=== PATIENT | male | born 1950 | race Asian ===

== ENCOUNTER 2017-07-21 19:41 | Inpatient (IN) | payer OTHER, MEDICARE ==
[~2017-07-21 19:41] MED LIST: DOPamine-D5W 1.6 MG/ML 250 ML
[2017-07-21] MEDS: ONDANSETRON 4 MG INJ IV (19:49)
[2017-07-21] MEDS: morphine 4 MG/ML VIAL IV (19:50)
[2017-07-21] MEDS: HEPARIN 1000 UNITS/ML 10 ML INJ IV (19:52)
[2017-07-21 19:53] LABS: ADD MAN DIFF? NO
[2017-07-21 19:55] LABS: BASOPHIL # 0.1 10^3/ul (0.0-0.1); BASOPHILS % 0.4 % (0.0-2.0); EOSINOPHILS # 0.3 10^3/ul (0.0-0.5); EOSINOPHILS % 2.2 % (0.0-7.0); HEMATOCRIT 44.2 % (42.0-52.0); HEMOGLOBIN 15.1 g/dl (14.0-18.0); LYMPHOCYTES # 2.8 10^3/ul (0.8-2.9); MEAN CORPUSCULAR HEMOGLOBIN 31.9 pg (29.0-33.0); MEAN CORPUSCULAR HGB CONC 34.2 g/dl (32.0-37.0); MEAN CORPUSCULAR VOLUME 93.2 fl (82.0-101.0); MEAN PLATELET VOLUME 10.7 fl (7.4-10.4); MONOCYTE # 0.9 10^3/ul (0.3-0.9); MONOCYTES % 6.8 % (0.0-11.0); NEUTROPHIL # 9.7 10^3/ul (1.6-7.5); PLATELET COUNT 202 10^3/UL (140-415); RED BLOOD COUNT 4.74 10^6/ul (4.70-6.10); RED CELL DISTRIBUTION WIDTH 13.2 % (11.5-14.5)
[2017-07-21 19:55] LABS: WHITE BLOOD COUNT 13.9 10^3/ul (4.8-10.8)
[2017-07-21] MEDS ORDERED: IODIXANOL LOCM 100 ML BTL ×2 (20:03→20:14)
[2017-07-21] MEDS ORDERED: LIDOCAINE 1% (MDV) 20 ML INJ ×2 (20:03→20:14)
[2017-07-21 20:14] LABS: ANION GAP 16 (8-16); BLOOD UREA NITROGEN 15 mg/dl (7-20); CALCIUM 8.7 mg/dl (8.4-10.2); CARBON DIOXIDE 22 mmol/L (21-31); CHLORIDE 104 mmol/L (97-110); CREATININE 0.87 mg/dl (0.61-1.24); GLUCOSE 149 mg/dl (70-220); POTASSIUM 3.9 mmol/L (3.5-5.1); SODIUM 138 mmol/L (135-144)
[2017-07-21] MEDS ORDERED: VERAPAMIL 5 MG INJ (20:14)
[2017-07-21] MEDS ORDERED: NITROGLYCERIN (IC) 100 MCG/ML INJ (20:14)
[2017-07-21 20:19] LABS: MAGNESIUM 1.9 mg/dl (1.7-2.5)
[2017-07-21] MEDS ORDERED: SOD CHLORIDE 0.9% 500 ML (20:19)
[2017-07-21 20:25] LABS: TROPONIN-I 0.032 ng/ml (0.00-0.12)
[2017-07-21] MEDS ORDERED: FENTAnyl 50 MCG/ML VIAL (20:41)
[2017-07-21] MEDS ORDERED: TICAGRELOR 90 MG TABLET (20:41)
[2017-07-21] MEDS ORDERED: MIDAZOLAM 1 MG/ML 2 ML INJ (20:42)
[2017-07-21] MEDS ORDERED: ATROPINE 1 MG/10 ML SYRINGE (21:29)
[2017-07-21] MEDS ORDERED: ACETAMINOPHEN 325 MG TAB PO (22:00)
[2017-07-21] MEDS ORDERED: morphine 2 MG INJ IV (22:00)
[2017-07-21] MEDS: SOD CHLORIDE 0.9% 1,000 ML IV (23:51)
[2017-07-22] MEDS: OXYCODONE/ACETAMINOPHEN (5/325) TAB PO (01:13)
[2017-07-22 02:44] LABS: CREATINE KINASE 2516 IU/L (23-200)
[2017-07-22 05:44] LABS: ADD MAN DIFF? NO
[2017-07-22 06:02] LABS: BASOPHILS % 0.2 % (0.0-2.0); HEMATOCRIT 36.3 % (42.0-52.0); HEMOGLOBIN 12.5 g/dl (14.0-18.0); LYMPHOCYTES # 1.2 10^3/ul (0.8-2.9); LYMPHOCYTES % 12.5 % (15.0-51.0); MEAN CORPUSCULAR HEMOGLOBIN 32.3 pg (29.0-33.0); MEAN CORPUSCULAR HGB CONC 34.4 g/dl (32.0-37.0); MEAN CORPUSCULAR VOLUME 93.8 fl (82.0-101.0); MEAN PLATELET VOLUME 11.4 fl (7.4-10.4); MONOCYTE # 0.4 10^3/ul (0.3-0.9); MONOCYTES % 3.7 % (0.0-11.0); NEUTROPHIL # 8.2 10^3/ul (1.6-7.5); NEUTROPHILS % 83.3 % (39.0-77.0); PLATELET COUNT 159 10^3/UL (140-415); RED BLOOD COUNT 3.87 10^6/ul (4.70-6.10); RED CELL DISTRIBUTION WIDTH 13.8 % (11.5-14.5)
[2017-07-22 06:02] LABS: WHITE BLOOD COUNT 9.8 10^3/ul (4.8-10.8)
[2017-07-22 06:13] LABS: ALANINE AMINOTRANSFERASE 88 IU/L (13-69); ALBUMIN 3.1 g/dl (3.3-4.9); ALBUMIN/GLOBULIN RATIO 1.06; ALKALINE PHOSPHATASE 38 IU/L (42-121); ANION GAP 12 (8-16); ASPARTATE AMINO TRANSFERASE 309 IU/L (15-46); BILIRUBIN,INDIRECT 0.4 mg/dl (0-1.1); BILIRUBIN,TOTAL 0.4 mg/dl (0.2-1.3); BLOOD UREA NITROGEN 16 mg/dl (7-20); CALCIUM 7.6 mg/dl (8.4-10.2); CARBON DIOXIDE 20 mmol/L (21-31); CHLORIDE 111 mmol/L (97-110); CHOL/HDL RATIO 5.9 RATIO; CHOLESTEROL 178 mg/dl (100-200); CREATININE 0.78 mg/dl (0.61-1.24); GLUCOSE 144 mg/dl (70-220); HDL CHOLESTEROL 30 mg/dl (30-78); LDL CHOLESTEROL,CALCULATED 117 mg/dl; MAGNESIUM 1.7 mg/dl (1.7-2.5); POTASSIUM 4.3 mmol/L (3.5-5.1); SODIUM 139 mmol/L (135-144); TRIGLYCERIDES 157 mg/dl (0-149)
[2017-07-22] MEDS ORDERED: BIVALIRUDIN 250MG /NS 50 ML 50 ML IVPB (06:19)
[2017-07-22 06:21] LABS: B-TYPE NATRIURETIC PEPTIDE 210 PG/ML (0-125)
[2017-07-22 06:47] LABS: CK INDEX 3.6; CREATINE KINASE 2426 IU/L (23-200)
[2017-07-22] MEDS: SOD CHLORIDE 0.9% 1,000 ML IV ×4 (07:00→11:00)
[2017-07-22] MEDS: DOCUSATE SODIUM 100 MG CAP PO (08:52)
[2017-07-22] MEDS: ASPIRIN (EC) 81 MG TAB PO (08:52)
[2017-07-22] MEDS: TICAGRELOR 90 MG TABLET PO (08:53)
[2017-07-22] MEDS ORDERED: ATORVASTATIN 80 MG TAB PO (21:00)
== END 2017-07-22 20:30 | disposition short-term general hospital (02) | DRG 247 ==
LOC: E/R 19:41 → CCL 20:05 → ICU 21:34
PROC: 027035Z Dilation of Coronary Artery, One Artery with Two Drug-eluting Intraluminal Devices, Percutaneous Approach (ICD-10-PCS; principal; 2017-07-21 20:00)
PROC: 4A023N7 Measurement of Cardiac Sampling and Pressure, Left Heart, Percutaneous Approach (ICD-10-PCS; 2017-07-21 20:00)
PROC: B211YZZ Fluoroscopy of Multiple Coronary Arteries using Other Contrast (ICD-10-PCS; 2017-07-21 20:00)
PROC: B215YZZ Fluoroscopy of Left Heart using Other Contrast (ICD-10-PCS; 2017-07-21 20:00)
PROC: 3E033PZ Introduction of Platelet Inhibitor into Peripheral Vein, Percutaneous Approach (ICD-10-PCS; 2017-07-21 20:00)
DX: I21.19 ST elevation (STEMI) myocardial infarction involving other coronary artery of inferior wall (principal); I10 Essential (primary) hypertension; Z87.891 Personal history of nicotine dependence; E78.5 Hyperlipidemia, unspecified; I25.5 Ischemic cardiomyopathy
CPT/HCPCS: 71045; 80048; 80053; 80061; 82550; 82553; 82962; 83735; 83880; 84443; 84484; 85025; 87081; 93005; 93306; 93458; 96374; 96375; 99291-25